=== PATIENT | male | born 1950 | race Caucasian/White ===

== ENCOUNTER 2021-03-09 06:36 | Inpatient (IN) | payer BC, MEDICARE ==
[2021-03-09] MEDS ORDERED: Sodium Chloride 0.9% 10 ML Syringe FLUSH PRN ×2 (07:26→14:47)
[2021-03-09] MEDS ORDERED: Sodium Chloride 0.9% 1,000 ML IV ONE (07:26)
[2021-03-09] MEDS ORDERED: Lactated Ringers 1,000 ML IV ONE ×2 (07:46→11:34)
--- NOTE | 2021-03-09 07:53 | EDM.PDOC ---
ED HPI GENERAL MEDICAL PROBLEM - General Chief Complaint: General Stated Complaint: WEAKNESS Time Seen by Provider: 03/09/21 07:25 Source of Information: Reports: Patient History Limitations: Reports: No Limitations - History of Present Illness INITIAL COMMENTS - FREE TEXT/NARRATIVE: This is a 70-year-old male without significant medical history who presents with concerns of weakness. History is provided by the patient and his . He is up in the area visiting and staying at his cabin. He woke up yesterday morning feeling fatigued. They drove up to the area yesterday, he works summer on the cab and went for a walk but felt fatigued throughout the day. He took a nap yesterday afternoon. In the evening he was in the shower when he became weak and passed out. He did have a head strike. Overnight he was noted to have a continued weakness when he would attempt to get up out of bed. Does not like his symptoms are primarily when standing. He was noted to be incontinent of urine once by his . He otherwise reports a mild cough over the last few days. He has no pain. He has had no urinary discomfort. He notes no tick bites. He is not anticoagulated. He has never been hospitalized. He does note a diarrheal illness yesterday. He is accompanied by his today who feels that he is "not as sharp". - Related Data Allergies Allergy/AdvReac Type Severity Reaction Status Date / Time No Known Allergies Allergy Verified 03/09/21 14:32 Home Meds: Home Meds Doxycycline [Vibramycin] 100 mg IV Q12H vial 03/09/21 [Rx] Enoxaparin [Lovenox] 40 mg SUBCUT Q24H syringe 03/09/21 [Rx] Meropenem [Merrem] 1 gm IV Q8H sdv 03/09/21 [Rx] Norepinephrine [Levophed] 8 mg IV TITRATE sdv 03/09/21 [Rx] Past Medical History - Past Health History Medical/Surgical History: Denies Medical/Surgical History - Infectious Disease History Infectious Disease History: Reports: Chicken Pox, Measles Social & Family History - Tobacco Use Tobacco Use Status *Q: Never Tobacco User - Caffeine Use Caffeine Use: Reports: Coffee - Recreational Drug Use Recreational Drug Use: No ED ROS GENERAL - Review of Systems Review Of Systems: See Below Constitutional: Reports: Malaise, Weakness HEENT: Reports: No Symptoms Respiratory: Reports: Cough Cardiovascular: Reports: No Symptoms Endocrine: Reports: No Symptoms GI/Abdominal: Reports: Diarrhea : Reports: Incontinence. Denies: Frequency, Hematuria Musculoskeletal: Reports: No Symptoms. Denies: Neck Pain Skin: Reports: No Symptoms Neurological: Reports: Confusion Psychiatric: Reports: No Symptoms Hematologic/Lymphatic: Reports: No Symptoms Immunologic: Reports: No Symptoms ED EXAM, GENERAL - Physical Exam Exam: See Below Exam Limited By: No Limitations General Appearance: Alert, No Apparent Distress Ears: Normal External Exam Nose: Normal Inspection Throat/Mouth: Normal Inspection Head: Other (superifical abrasion over the left forehead) Neck: Full Range of Motion. No: Tender Lateral, Tender Midline Respiratory/Chest: Lungs Clear. No: No Respiratory Distress Cardiovascular: Regular Rate, Rhythm GI/Abdominal: Soft, Non-Tender Back Exam: Normal Inspection Extremities: Normal Inspection Neurological: Alert, Oriented, CN II-XII Intact, Normal Cognition, Other (He is alert, oriented, conversant. Speech is fluid. Extremity strength symmetric and intact. Finger-nose testing intact.) Psychiatric: Normal Affect, Normal Mood Skin Exam: Warm, Dry #2 Interpretation EKG Date: 03/09/21 Rhythm: NSR [place]: Normal P-Wave: Present QRS: Normal ST-T: Normal QT: Normal (Nonspecific T wave inversions in lead III, no other ischemic change, no prior for comparison) Course - Vital Signs Last Recorded V/S: Last Vital Signs Temp 36.2 C 03/09/21 19:30 Pulse 62 03/09/21 20:45 Resp 21 H 03/09/21 20:45 BP 108/43 L 03/09/21 20:45 Pulse Ox 94 L 03/09/21 20:45 Orthostatic Blood Pressure [ 75/42 Standing] Orthostatic Blood Pressure [ 110/89 Sitting] Orthostatic Blood Pressure [ 105/43 Supine] - Orders/Labs/Meds Labs: Laboratory Tests 03/09/21 03/09/21 03/09/21 Range/Units 07:30 07:30 07:30 WBC (4.5-11.0) K/uL RBC (4.30-5.90) M/uL Hgb (12.0-15.0) g/dL Hct (40.0-54.0) % MCV (80-98) fL MCH (27-31) pg MCHC (32-36) % Plt Count (150-400) K/uL Sodium 136 L (140-148) mmol/L Potassium 3.6 (3.6-5.2) mmol/L Chloride 103 (100-108) mmol/L Carbon Dioxide 21 (21-32) mmol/L Anion Gap 15.6 H (5.0-14.0) mmol/L BUN 18 (7-18) mg/dL Creatinine 1.3 (0.8-1.3) mg/dL Est Cr Clr Drug Dosing 57.12 mL/min Estimated GFR (MDRD) 55 L (>60) Glucose 150 H (74-106) mg/dL Lactic Acid 2.3 H (0.4-2.0) mmol/L Calcium 7.8 L (8.5-10.1) mg/dL POC WB Ioniz Calcium (1.12-1.32) mmol/L Magnesium 1.6 L (1.8-2.4) mg/dL Total Bilirubin 0.8 (0.2-1.0) mg/dL AST 24 (15-37) U/L ALT 39 (12-78) U/L Alkaline Phosphatase 58 (46-116) U/L Troponin I < 0.017 (0.000-0.056) ng/mL C-Reactive Protein (0.0-0.3) mg/dL Total Protein 6.1 L (6.4-8.2) g/dL Albumin 3.1 L (3.4-5.0) g/dL Globulin 3.0 (2.3-3.5) g/dL Albumin/Globulin Ratio 1.0 L (1.2-2.2) Procalcitonin ng/mL Urine Color (YELLOW) Urine Appearance (CLEAR) Urine pH (5.0-8.0) Ur Specific [place] (1.008-1.030) Urine Protein (NEGATIVE) mg/dL Urine Glucose (UA) (NEGATIVE) mg/dL Urine Ketones (NEGATIVE) mg/dL Urine Occult Blood (NEGATIVE) Urine Nitrite (NEGATIVE) Urine Bilirubin (NEGATIVE) Urine Urobilinogen (0.2-1.0) EU/dL Ur Leukocyte Esterase (NEGATIVE) Urine RBC (0-5) Urine WBC (0-5) Ur Epithelial Cells Amorphous Sediment Urine Bacteria Urine Mucus Influenza Type A RNA (NEGATIVE) RSV RNA (INAAT) (NEGATIVE) Influenza Type B RNA (NEGATIVE) SARS-CoV-2 RNA (MARGARITA) (NEGATIVE) 03/09/21 03/09/21 03/09/21 Range/Units 07:30 07:44 08:37 WBC 5.5 (4.5-11.0) K/uL RBC 4.09 L (4.30-5.90) M/uL Hgb 13.0 (12.0-15.0) g/dL Hct 37.7 L (40.0-54.0) % MCV 92 (80-98) fL MCH 32 H (27-31) pg MCHC 35 (32-36) % Plt Count 96 L (150-400) K/uL Sodium (140-148) mmol/L Potassium (3.6-5.2) mmol/L Chloride (100-108) mmol/L Carbon Dioxide (21-32) mmol/L Anion Gap (5.0-14.0) mmol/L BUN (7-18) mg/dL Creatinine (0.8-1.3) mg/dL Est Cr Clr Drug Dosing mL/min Estimated GFR (MDRD) (>60) Glucose (74-106) mg/dL Lactic Acid (0.4-2.0) mmol/L Calcium (8.5-10.1) mg/dL POC WB Ioniz Calcium (1.12-1.32) mmol/L Magnesium (1.8-2.4) mg/dL Total Bilirubin (0.2-1.0) mg/dL AST (15-37) U/L ALT (12-78) U/L Alkaline Phosphatase (46-116) U/L Troponin I (0.000-0.056) ng/mL C-Reactive Protein (0.0-0.3) mg/dL Total Protein (6.4-8.2) g/dL Albumin (3.4-5.0) g/dL Globulin (2.3-3.5) g/dL Albumin/Globulin Ratio (1.2-2.2) Procalcitonin ng/mL Urine Color Yellow (YELLOW) Urine Appearance Clear (CLEAR) Urine pH 5.5 (5.0-8.0) Ur Specific [place] 1.025 (1.008-1.030) Urine Protein Negative (NEGATIVE) mg/dL Urine Glucose (UA) Negative (NEGATIVE) mg/dL Urine Ketones Negative (NEGATIVE) mg/dL Urine Occult Blood Negative (NEGATIVE) Urine Nitrite Negative (NEGATIVE) Urine Bilirubin Negative (NEGATIVE) Urine Urobilinogen 0.2 (0.2-1.0) EU/dL Ur Leukocyte Esterase Negative (NEGATIVE) Urine RBC 0-5 (0-5) Urine WBC 0-5 (0-5) Ur Epithelial Cells Rare Amorphous Sediment Not seen Urine Bacteria Not seen Urine Mucus Few Influenza Type A RNA Negative (NEGATIVE) RSV RNA (INAAT) Negative (NEGATIVE) Influenza Type B RNA Negative (NEGATIVE) SARS-CoV-2 RNA (MARGARITA) Negative (NEGATIVE) 03/09/21 03/09/21 03/09/21 Range/Units 09:00 09:13 11:36 WBC (4.5-11.0) K/uL RBC (4.30-5.90) M/uL Hgb (12.0-15.0) g/dL Hct (40.0-54.0) % MCV (80-98) fL MCH (27-31) pg MCHC (32-36) % Plt Count (150-400) K/uL Sodium (140-148) mmol/L Potassium (3.6-5.2) mmol/L Chloride (100-108) mmol/L Carbon Dioxide (21-32) mmol/L Anion Gap (5.0-14.0) mmol/L BUN (7-18) mg/dL Creatinine (0.8-1.3) mg/dL Est Cr Clr Drug Dosing mL/min Estimated GFR (MDRD) (>60) Glucose (74-106) mg/dL Lactic Acid (0.4-2.0) mmol/L Calcium (8.5-10.1) mg/dL POC WB Ioniz Calcium 1.09 L (1.12-1.32) mmol/L Magnesium (1.8-2.4) mg/dL Total Bilirubin (0.2-1.0) mg/dL AST (15-37) U/L ALT (12-78) U/L Alkaline Phosphatase (46-116) U/L Troponin I (0.000-0.056) ng/mL C-Reactive Protein 5.32 H (0.0-0.3) mg/dL Total Protein (6.4-8.2) g/dL Albumin (3.4-5.0) g/dL Globulin (2.3-3.5) g/dL Albumin/Globulin Ratio (1.2-2.2) Procalcitonin 0.23 ng/mL Urine Color (YELLOW) Urine Appearance (CLEAR) Urine pH (5.0-8.0) Ur Specific [place] (1.008-1.030) Urine Protein (NEGATIVE) mg/dL Urine Glucose (UA) (NEGATIVE) mg/dL Urine Ketones (NEGATIVE) mg/dL Urine Occult Blood (NEGATIVE) Urine Nitrite (NEGATIVE) Urine Bilirubin (NEGATIVE) Urine Urobilinogen (0.2-1.0) EU/dL Ur Leukocyte Esterase (NEGATIVE) Urine RBC (0-5) Urine WBC (0-5) Ur Epithelial Cells Amorphous Sediment Urine Bacteria Urine Mucus Influenza Type A RNA (NEGATIVE) RSV RNA (INAAT) (NEGATIVE) Influenza Type B RNA (NEGATIVE) SARS-CoV-2 RNA (MARGARITA) (NEGATIVE) 03/09/21 Range/Units 11:36 WBC (4.5-11.0) K/uL RBC (4.30-5.90) M/uL Hgb (12.0-15.0) g/dL Hct (40.0-54.0) % MCV (80-98) fL MCH (27-31) pg MCHC (32-36) % Plt Count (150-400) K/uL Sodium (140-148) mmol/L Potassium (3.6-5.2) mmol/L Chloride (100-108) mmol/L Carbon Dioxide (21-32) mmol/L Anion Gap (5.0-14.0) mmol/L BUN (7-18) mg/dL Creatinine (0.8-1.3) mg/dL Est Cr Clr Drug Dosing mL/min Estimated GFR (MDRD) (>60) Glucose (74-106) mg/dL Lactic Acid 1.6 (0.4-2.0) mmol/L Calcium (8.5-10.1) mg/dL POC WB Ioniz Calcium (1.12-1.32) mmol/L Magnesium (1.8-2.4) mg/dL Total Bilirubin (0.2-1.0) mg/dL AST (15-37) U/L ALT (12-78) U/L Alkaline Phosphatase (46-116) U/L Troponin I (0.000-0.056) ng/mL C-Reactive Protein (0.0-0.3) mg/dL Total Protein (6.4-8.2) g/dL Albumin (3.4-5.0) g/dL Globulin (2.3-3.5) g/dL Albumin/Globulin Ratio (1.2-2.2) Procalcitonin ng/mL Urine Color (YELLOW) Urine Appearance (CLEAR) Urine pH (5.0-8.0) Ur Specific [place] (1.008-1.030) Urine Protein (NEGATIVE) mg/dL Urine Glucose (UA) (NEGATIVE) mg/dL Urine Ketones (NEGATIVE) mg/dL Urine Occult Blood (NEGATIVE) Urine Nitrite (NEGATIVE) Urine Bilirubin (NEGATIVE) Urine Urobilinogen (0.2-1.0) EU/dL Ur Leukocyte Esterase (NEGATIVE) Urine RBC (0-5) Urine WBC (0-5) Ur Epithelial Cells Amorphous Sediment Urine Bacteria Urine Mucus Influenza Type A RNA (NEGATIVE) RSV RNA (INAAT) (NEGATIVE) Influenza Type B RNA (NEGATIVE) SARS-CoV-2 RNA (MARGARITA) (NEGATIVE) Meds: Medications Discontinued Medications Generic Name Dose Route Start Last Admin Trade Name Freq PRN Reason Stop Dose Admin Acetaminophen 650 mg 03/09/21 14:47 03/09/21 15:53 Acetaminophen 325 Mg Tab PO 650 mg Q4H PRN Administration Pain (Mild 1-3)/fever Calcium Carbonate/Glycine 1,000 mg 03/09/21 09:19 03/09/21 10:44 Calcium Carbonate 500 Mg Tab.Chew PO 03/09/21 09:20 1,000 mg ONETIME ONE Administration Enoxaparin Sodium 40 mg 03/09/21 16:00 03/09/21 15:54 Enoxaparin 40 Mg/0.4 Ml Syringe SUBCUT 40 mg Q24H TONI Administration Haloperidol Lactate 1 mg 03/09/21 17:41 03/09/21 17:57 Haloperidol Lactate 5 Mg/Ml Sdv IVPUSH 1 mg Q2H PRN Administration Agitation Sodium Chloride 1,000 mls @ 999 mls/hr 03/09/21 07:26 03/09/21 07:35 Normal Saline IV 03/09/21 08:26 999 mls/hr BOLUS ONE Administration Protocol Lactated Ringer's 1,000 mls @ 999 mls/hr 03/09/21 07:46 03/09/21 09:41 Ringers, Lactated IV 03/09/21 08:46 999 mls/hr BOLUS ONE Administration Cefepime HCl 2 gm/ Sodium 50 mls @ 100 mls/hr 03/09/21 11:13 03/09/21 12:18 Chloride IV 03/09/21 11:42 100 mls/hr ONETIME ONE Administration Doxycycline Hyclate 100 mg/ 100 mls @ 100 mls/hr 03/09/21 11:13 03/09/21 13:25 Sodium Chloride IV 03/09/21 12:12 100 mls/hr ONETIME ONE Administration Lactated Ringer's 1,000 mls @ 999 mls/hr 03/09/21 11:34 03/09/21 12:17 Ringers, Lactated IV 03/09/21 12:34 999 mls/hr BOLUS ONE Administration Lactated Ringer's 1,000 mls @ 125 mls/hr 03/09/21 14:47 03/09/21 17:05 Ringers, Lactated IV 125 mls/hr ASDIRECTED TONI Administration Doxycycline Hyclate 100 mg/ 100 mls @ 100 mls/hr 03/10/21 02:00 Sodium Chloride IV Q12H TONI Meropenem 1 gm/ Sodium 100 mls @ 200 mls/hr 03/09/21 16:00 03/09/21 15:54 Chloride IV 200 mls/hr Q8H TONI Administration Norepinephrine Bitartrate 8 mg 258 mls @ 3.87 mls/hr 03/09/21 17:00 03/09/21 18:03 / Dextrose/Water IV 4 mcg/min TITRATE TONI 7.74 mls/hr Infusion Protocol 2 MCG/MIN Magnesium Oxide 800 mg 03/09/21 08:55 03/09/21 10:44 Magnesium Oxide 400 Mg Tab PO 03/09/21 08:56 800 mg ONETIME ONE Administration Ondansetron HCl 4 mg 03/09/21 14:47 Ondansetron 4 Mg/2 Ml Sdv IV Q4H PRN Nausea/Vomiting Polyethylene Glycol 17 gm 03/09/21 14:47 Polyethylene Glycol 3350 Powder 17 Gm Packet PO DAILY PRN Constipation Sodium Chloride 10 ml 03/09/21 07:26 03/09/21 07:35 Sodium Chloride 0.9% 10 Ml Syringe FLUSH 10 ml ASDIRECTED PRN Administration Keep Vein Open Sodium Chloride 10 ml 03/09/21 14:47 Sodium Chloride 0.9% 10 Ml Syringe FLUSH ASDIRECTED PRN Keep Vein Open - Re-Assessments/Exams Free Text/Narrative Re-Assessment/Exam: This is a 70-year-old male who presents with concerns of generalized weakness. This was associated with some confusion and a fall in the shower yesterday. On examination he was found to be hypotensive with preserved heart rate. He had persistent concerning blood pressure readings of systolics in the 80s. Cardiopulmonary exam is otherwise unremarkable. His saturations were appropriate on room air. His symptoms of fatigue, weakness, without any other associated symptoms or findings on exam left us with a broad differential. Screening labs were obtained and show thrombocytopenia but are otherwise generally unremarkable. He was having some cough but there is no infiltrate on chest x-ray. No other focal findings on exam to suggest a source for sepsis. With his fall and head strike in the shower we did obtain a CT of the head which showed no acute abnormality. He was given several boluses of IV fluids to correct his blood pressure. After 3 L they did start to normalize somewhat in the emergency department. Fluid resuscitation was guided by [id number] ultrasound, it was difficult to visu elda his IVC however his ejection fraction appeared grossly preserved, there was no RV enlargement, no pericardial effusion. I suspect the etiology of his symptoms is probably tickborne illness, he is frequently in the [place], symptoms could be consistent with this with some suggestion of this by his thrombocytopenia. However, given his hypotension and undifferentiated presentation we cannot rule out that he is septic from an occult source. He was therefore given doxycycline and cefepime. He was admitted to the hospitalist for further work-up and management. 03/10/21 17:20 Departure - Departure Time of Disposition: 14:00 Disposition: Admitted As Inpatient 67 Clinical Impression: At high risk for tick borne illness Hypotension Qualifiers: Hypotension type: unspecified hypotension type Qualified Code(s): I95.9 - Hypotension, unspecified - Discharge Information Sepsis Event Note (ED) - Evaluation Sepsis Screening Result: No Definite Risk
--- NOTE | 2021-03-09 08:39 | CRLCT ---
INDICATION: Fall. Confusion. TECHNIQUE: Noncontrast CT images were acquired through the brain. COMPARISON: None. FINDINGS: Prominence of the ventricles and sulci compatible with mild diffuse cerebral volume loss. No mass effect or midline shift. The prajapati-white differentiation is maintained. No acute intracranial hemorrhage or pathologic extra-axial fluid collection. Scattered hypoattenuation in the supratentorial white matter, suggestive of mild chronic microvascular ischemic changes. Intracranial atherosclerotic calcifications. Dysconjugate gaze noted. The calvarium is intact. Mild ethmoid and left sphenoid sinus mucosal thickening. The mastoid air cells are clear. IMPRESSION: 1. No acute intracranial hemorrhage or mass effect. 2. Suggested mild chronic microvascular ischemic changes. 3. Mild diffuse cerebral volume loss. Please note that all CT scans at this facility use dose modulation, iterative reconstruction, and/or weight-based dosing when appropriate to reduce radiation dose to as low as reasonably achievable. Dictated by Babatunde Costa MD @ 03/09/2021 8:39:[address] Babatunde Costa @ Mar 09 2021 8:39AM
[2021-03-09 08:41] LABS: CORONAVIRUS COVID-19 NAA NEGATIVE (NEGATIVE)
[2021-03-09] MEDS ORDERED: Magnesium Oxide 400 MG Tab PO ONE (08:55)
[2021-03-09] MEDS ORDERED: Calcium Carbonate 500 MG Tab.Chew PO ONE (09:19)
[2021-03-09] MEDS ORDERED: Doxycycline 100 MG in Sodium Chloride 0.9% 100 ML IV ONE (11:13)
[2021-03-09] MEDS ORDERED: Cefepime 2 GM in Sodium Chloride 0.9% 50 ML IV ONE (11:13)
[2021-03-09] MEDS ORDERED: Ondansetron 4 MG/2 ML SDV IV PRN (14:47)
[2021-03-09] MEDS ORDERED: Polyethylene Glycol 3350 Powder 17 GM Packet PO PRN (14:47)
[2021-03-09] MEDS ORDERED: Lactated Ringers 1,000 ML IV SCH (14:47)
[2021-03-09] MEDS ORDERED: Acetaminophen 325 MG Tab PO PRN (14:47)
--- NOTE | 2021-03-09 14:47 | PCM.HP.2 ---
H&P History of Present Illness - General Date of Service: 03/09/21 Admit Problem/Dx: Admission Diagnosis/Problem Admission Diagnosis/Problem Sepsis Source of Information: Patient, Family, Provider, RN Notes Reviewed History Limitations: Reports: No Limitations - History of Present Illness Initial Comments - Free Text/Narative: Mr. Bauer is a 70-year-old gentleman who was admitted through the emergency department with profound weakness, hypotension, syncopal episodes, secondary to sepsis and underlying infection. He felt well until yesterday when he noted marked weakness and fatigue throughout the day. He took a shower in the evening and while showering he experienced a syncopal episode and had marked difficulty getting up off the floor of the shower. He also reports symptoms of chills and sweats. During the night he apparently fell out of bed at least once and this morning when attempting to get out of bed experienced another syncopal episode. He came into the emergency department via EMS and was noted to be hypotensive with systolic pressure in the 80s. He has received 3 L of IV fluids given in the emergency department per sepsis protocol. White blood cell count is low normal and platelet count is low as well. Temperature has been elevated while h jose has been in the emergency department. Blood cultures have been obtained. He is out in the [facility] frequently especially when he is at his cabin here in the [place] area. He has noted ticks when he was here 2 weeks ago as well as yesterday. He denies any areas of tick bites that he is aware of. No symptoms of localized infection. Serology for Lyme's disease and anaplasmosis have been obtained in the emergency department and he was started on IV doxycycline and cefepime. Blood pressure has stabilized after IV fluid infusion. Lactic acid level was mildly elevated but normalized following IV fluids. - Related Data Allergies/Adverse Reactions: Allergies Allergy/AdvReac Type Severity Reaction Status Date / Time No Known Allergies Allergy Verified 03/09/21 14:32 Home Medications: Home Meds NK [No Known Home Meds] 03/09/21 [History] Past Medical History - Past Health History Medical/Surgical History: Denies Medical/Surgical History - Infectious Disease History Infectious Disease History: Reports: Chicken Pox, Measles Social & Family History - Family History Family Medical History: Unobtainable - Tobacco Use Tobacco Use Status *Q: Never Tobacco User Second Hand Smoke Exposure: No - Caffeine Use Caffeine Use: Reports: Coffee, Soda - Recreational Drug Use Recreational Drug Use: No H&P Review of Systems - Review of Systems: Review Of Systems: See Below General: Reports: Fever, Chills, Malaise, Weakness, Fatigue, Diaphoresis HEENT: Reports: No Symptoms Pulmonary: Reports: No Symptoms Cardiovascular: Reports: No Symptoms Gastrointestinal: Reports: No Symptoms Genitourinary: Reports: No Symptoms Skin: Reports: No Symptoms Psychiatric: Reports: No Symptoms Neurological: Reports: No Symptoms Hematologic/Lymphatic: Reports: No Symptoms Immunologic: Reports: No Symptoms Exam - Exam Exam: See Below - Vital Signs Vital Signs: Last Vital Signs Temp 101.7 F H 03/09/21 14:29 Pulse 74 03/09/21 14:29 Resp 20 03/09/21 14:29 BP 109/55 L 03/09/21 14:29 Pulse Ox 95 03/09/21 14:29 Orthostatic Blood Pressure [ 75/42 Standing] Orthostatic Blood Pressure [ 110/89 Sitting] Orthostatic Blood Pressure [ 105/43 Supine] Weight: 277 lb 1.6 oz - Exam Quality Assessment: DVT Prophylaxis General: Alert, Cooperative, Moderate Distress HEENT: Conjunctiva Clear, Hearing Intact, Mucosa Moist & [place], Normal Nasal Septum, Posterior Pharynx Clear, Pupils Equal Neck: Supple, Trachea Midline, +2 Carotid Pulse wo Bruit Lungs: Clear to Auscultation, Normal Respiratory Effort Cardiovascular: Regular Rate, Regular Rhythm, Normal S1, Normal S2. No: Systolic Murmur, Diastolic Murmur GI/Abdominal Exam: Soft, Non-Tender, No Organomegaly, No Distention Back Exam: Normal Inspection, Full Range of Motion. No: Paraspinal Tenderness, Vertebral Tenderness Extremities: Non-Tender, No Pedal Edema Skin: Warm, Dry, Intact Neurological: Cranial Nerves Intact, Strength Equal Bilateral, Normal Speech, Normal Tone, Sensation Intact. No: Focal Deficit Neuro Extensive - Mental Status: Alert, Oriented x3, Other (Confusion and word searching) - Patient Data Lab Results Last 24 hrs: Laboratory Results - last 24 hr 03/09/21 03/09/21 03/09/21 Range/Units 07:30 07:30 07:30 WBC (4.5-11.0) K/uL RBC (4.30-5.90) M/uL Hgb (12.0-15.0) g/dL Hct (40.0-54.0) % MCV (80-98) fL MCH (27-31) pg MCHC (32-36) % Plt Count (150-400) K/uL Sodium 136 L (140-148) mmol/L Potassium 3.6 (3.6-5.2) mmol/L Chloride 103 (100-108) mmol/L Carbon Dioxide 21 (21-32) mmol/L Anion Gap 15.6 H (5.0-14.0) mmol/L BUN 18 (7-18) mg/dL Creatinine 1.3 (0.8-1.3) mg/dL Est Cr Clr Drug Dosing 57.12 mL/min Estimated GFR (MDRD) 55 L (>60) Glucose 150 H (74-106) mg/dL Lactic Acid 2.3 H (0.4-2.0) mmol/L Calcium 7.8 L (8.5-10.1) mg/dL POC WB Ioniz Calcium (1.12-1.32) mmol/L Magnesium 1.6 L (1.8-2.4) mg/dL Total Bilirubin 0.8 (0.2-1.0) mg/dL AST 24 (15-37) U/L ALT 39 (12-78) U/L Alkaline Phosphatase 58 (46-116) U/L Troponin I < 0.017 (0.000-0.056) ng/mL C-Reactive Protein (0.0-0.3) mg/dL Total Protein 6.1 L (6.4-8.2) g/dL Albumin 3.1 L (3.4-5.0) g/dL Globulin 3.0 (2.3-3.5) g/dL Albumin/Globulin Ratio 1.0 L (1.2-2.2) Urine Color (YELLOW) Urine Appearance (CLEAR) Urine pH (5.0-8.0) Ur Specific [place] (1.008-1.030) Urine Protein (NEGATIVE) mg/dL Urine Glucose (UA) (NEGATIVE) mg/dL Urine Ketones (NEGATIVE) mg/dL Urine Occult Blood (NEGATIVE) Urine Nitrite (NEGATIVE) Urine Bilirubin (NEGATIVE) Urine Urobilinogen (0.2-1.0) EU/dL Ur Leukocyte Esterase (NEGATIVE) Urine RBC (0-5) Urine WBC (0-5) Ur Epithelial Cells Amorphous Sediment Urine Bacteria Urine Mucus Influenza Type A RNA (NEGATIVE) RSV RNA (INAAT) (NEGATIVE) Influenza Type B RNA (NEGATIVE) SARS-CoV-2 RNA (MARGARITA) (NEGATIVE) 03/09/21 03/09/21 03/09/21 Range/Units 07:30 07:44 08:37 WBC 5.5 (4.5-11.0) K/uL RBC 4.09 L (4.30-5.90) M/uL Hgb 13.0 (12.0-15.0) g/dL Hct 37.7 L (40.0-54.0) % MCV 92 (80-98) fL MCH 32 H (27-31) pg MCHC 35 (32-36) % Plt Count 96 L (150-400) K/uL Sodium (140-148) mmol/L Potassium (3.6-5.2) mmol/L Chloride (100-108) mmol/L Carbon Dioxide (21-32) mmol/L Anion Gap (5.0-14.0) mmol/L BUN (7-18) mg/dL Creatinine (0.8-1.3) mg/dL Est Cr Clr Drug Dosing mL/min Estimated GFR (MDRD) (>60) Glucose (74-106) mg/dL Lactic Acid (0.4-2.0) mmol/L Calcium (8.5-10.1) mg/dL POC WB Ioniz Calcium (1.12-1.32) mmol/L Magnesium (1.8-2.4) mg/dL Total Bilirubin (0.2-1.0) mg/dL AST (15-37) U/L ALT (12-78) U/L Alkaline Phosphatase (46-116) U/L Troponin I (0.000-0.056) ng/mL C-Reactive Protein (0.0-0.3) mg/dL Total Protein (6.4-8.2) g/dL Albumin (3.4-5.0) g/dL Globulin (2.3-3.5) g/dL Albumin/Globulin Ratio (1.2-2.2) Urine Color Yellow (YELLOW) Urine Appearance Clear (CLEAR) Urine pH 5.5 (5.0-8.0) Ur Specific [place] 1.025 (1.008-1.030) Urine Protein Negative (NEGATIVE) mg/dL Urine Glucose (UA) Negative (NEGATIVE) mg/dL Urine Ketones Negative (NEGATIVE) mg/dL Urine Occult Blood Negative (NEGATIVE) Urine Nitrite Negative (NEGATIVE) Urine Bilirubin Negative (NEGATIVE) Urine Urobilinogen 0.2 (0.2-1.0) EU/dL Ur Leukocyte Esterase Negative (NEGATIVE) Urine RBC 0-5 (0-5) Urine WBC 0-5 (0-5) Ur Epithelial Cells Rare Amorphous Sediment Not seen Urine Bacteria Not seen Urine Mucus Few Influenza Type A RNA Negative (NEGATIVE) RSV RNA (INAAT) Negative (NEGATIVE) Influenza Type B RNA Negative (NEGATIVE) SARS-CoV-2 RNA (MARGARITA) Negative (NEGATIVE) 03/09/21 03/09/21 03/09/21 Range/Units 09:13 11:36 11:36 WBC (4.5-11.0) K/uL RBC (4.30-5.90) M/uL Hgb (12.0-15.0) g/dL Hct (40.0-54.0) % MCV (80-98) fL MCH (27-31) pg MCHC (32-36) % Plt Count (150-400) K/uL Sodium (140-148) mmol/L Potassium (3.6-5.2) mmol/L Chloride (100-108) mmol/L Carbon Dioxide (21-32) mmol/L Anion Gap (5.0-14.0) mmol/L BUN (7-18) mg/dL Creatinine (0.8-1.3) mg/dL Est Cr Clr Drug Dosing mL/min Estimated GFR (MDRD) (>60) Glucose (74-106) mg/dL Lactic Acid 1.6 (0.4-2.0) mmol/L Calcium (8.5-10.1) mg/dL POC WB Ioniz Calcium 1.09 L (1.12-1.32) mmol/L Magnesium (1.8-2.4) mg/dL Total Bilirubin (0.2-1.0) mg/dL AST (15-37) U/L ALT (12-78) U/L Alkaline Phosphatase (46-116) U/L Troponin I (0.000-0.056) ng/mL C-Reactive Protein 5.32 H (0.0-0.3) mg/dL Total Protein (6.4-8.2) g/dL Albumin (3.4-5.0) g/dL Globulin (2.3-3.5) g/dL Albumin/Globulin Ratio (1.2-2.2) Urine Color (YELLOW) Urine Appearance (CLEAR) Urine pH (5.0-8.0) Ur Specific [place] (1.008-1.030) Urine Protein (NEGATIVE) mg/dL Urine Glucose (UA) (NEGATIVE) mg/dL Urine Ketones (NEGATIVE) mg/dL Urine Occult Blood (NEGATIVE) Urine Nitrite (NEGATIVE) Urine Bilirubin (NEGATIVE) Urine Urobilinogen (0.2-1.0) EU/dL Ur Leukocyte Esterase (NEGATIVE) Urine RBC (0-5) Urine WBC (0-5) Ur Epithelial Cells Amorphous Sediment Urine Bacteria Urine Mucus Influenza Type A RNA (NEGATIVE) RSV RNA (INAAT) (NEGATIVE) Influenza Type B RNA (NEGATIVE) SARS-CoV-2 RNA (MARGARITA) (NEGATIVE) Result Diagrams: 03/09/21 07:30 03/09/21 07:30 Sepsis Event Note - Evaluation Sepsis Screening Result: No Definite Risk - Focused Exam Vital Signs: Vital Signs Temp Pulse Resp BP Pulse Ox 03/09/21 14:29 101.7 F H 74 20 109/55 L 95 03/09/21 12:21 74 17 97/36 L 90 L 03/09/21 11:10 74 15 93/48 L 96 03/09/21 11:02 74 15 74/44 L 87 L 03/09/21 10:56 101.4 F H 03/09/21 10:50 99 23 H 75/42 L 98 03/09/21 10:48 83 27 H 110/89 95 03/09/21 10:45 86 14 105/43 L 98 03/09/21 10:31 75 17 83/50 L 97 03/09/21 10:03 68 26 H 78/23 L 95 03/09/21 09:47 70 25 H 111/49 L 97 03/09/21 09:35 76 15 98/51 L 96 03/09/21 09:19 98.8 F 73 19 88/46 L 96 03/09/21 08:47 77 19 94/45 L 91 L 03/09/21 08:40 78 27 H 104/49 L 91 L 03/09/21 08:32 82 17 107/41 L 94 L 03/09/21 07:58 102.8 F H 03/09/21 07:57 78 15 95/48 L 92 L 03/09/21 07:56 95/48 L 03/09/21 07:26 77 80/44 L 03/09/21 07:05 101.3 F H 87 16 107/54 L 96 03/09/21 06:40 101.3 F H 87 16 107/54 L 96 *Q Meaningful Use (ADM) - VTE Risk Assess *Q Each Risk Factor Represents 1 Point: Obesity ( BMI > 25 kg/m2), Sepsis Total Score 1 Point Risk Factors: 2 Each Risk Factor Represents 2 Points: Age 60 - 74 Years Total Score 2 Point Risk Factors: 2 Each Risk Factor Represents 3 Points: None Total Score 3 Point Risk Factors: 0 Each Risk Factor Represents 5 Points: None Total Score 5 Point Risk Factors: 0 Venous Thromboembolism Risk Factor Score *Q: 4 Problem List Initiated/Reviewed/Updated: Yes Orders Last 24hrs: Active Orders 24 hr Category Date Time Status Patient Status Manage Transfer [TRANSFER] Routine ADT 03/09/21 14:39 Ordered Blood Pressure Mgt: Sepsis [RC] [id number] Care 03/09/21 07:26 Active EKG Documentation Completion [RC] ASDIRECTED Care 03/09/21 07:27 Active Chest 2V [CR] Stat Exams 03/09/21 07:26 Taken CULTURE BLOOD [BC] Urgent Lab 03/09/21 07:30 Received CULTURE BLOOD [BC] Urgent Lab 03/09/21 08:00 Received HUMAN GRANULOCYTIC ALEXIS-HGE Stat Lab 03/09/21 13:13 Ordered LYME, TOTAL AB TEST/REFLEX Stat Lab 03/09/21 07:30 Received PROCALCITONIN [CHEM] Stat Lab 03/09/21 09:00 Received Sodium Chloride 0.9% [Saline Flush] Med 03/09/21 07:26 Active 10 ml FLUSH ASDIRECTED PRN Blood Culture x2 Reflex Set [OM.PC] Urgent Oth 03/09/21 07:26 Ordered Saline Lock Insert [OM.PC] Stat Oth 03/09/21 07:26 Ordered Severe Sepsis Onset Time [OM.PC] Stat Oth 03/09/21 07:26 Ordered Resuscitation Status Routine Resus Stat 03/09/21 14:40 Ordered EKG 12 Lead [EK] Stat Ther 03/09/21 07:26 Ordered Medication Orders Sodium Chloride (Sodium Chloride 0.9% 10 Ml Syringe) 10 ml FLUSH ASDIRECTED PRN PRN Reason: Keep Vein Open Last Admin: 03/09/21 07:35 Dose: 10 ml Documented by: YESENIA Assessment/Plan Comment:: ASSESSMENT AND PLAN SEPSIS-secondary to underlying infection, 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 Normal white blood cell count, procalcitonin level is only mildly elevated. Low normal white blood cell count and thrombocytopenia would certainly fit with anaplasmosis. This point he is not had headache, significant myalgias, or transaminitis. He is experiencing some mild confusion and word searching -Serology for Lyme's disease and anaplasmosis pending -Blood cultures pending -Continue IV fluids -Epinephrine for further hypotension -Doxycycline IV -Empiric broad-spectrum antibiotic therapy with meropenem, pending culture results and response to therapy HYPOTENSION-likely secondary to sepsis -Management as above MAINTENANCE ISSUES -DVT prophylaxis; Lovenox 40 mg subcu daily -GI prophylaxis; not indicated -Redd catheter; not indicated -Nutrition; regular diet -Nicotine dependence; not required CODE STATUS-FULL CODE ADMISSION STATUS-patient will be admitted to inpatient status, expect at least a 2 night hospital stay for evaluation and management of problems as outlined above. At the time of this admission I do not reasonably expected evaluation and management of this problem will require more than a 96 hour hospital stay. DISPOSITION-anticipate discharge to home after the hospital stay. PRIMARY CARE PROVIDER-he is from the [facility] and receives primary care there - Mortality Measure Prognosis:: Good
[2021-03-09] MEDS ORDERED: Enoxaparin 40 MG/0.4 ML Syringe SUBCUT SCH (16:00)
[2021-03-09] MEDS ORDERED: Meropenem 1 GM in Sodium Chloride 0.9% 100 ML IV SCH (16:00)
[2021-03-09] MEDS ORDERED: Norepinephrine 8 MG in Dextrose 5% in Water 250 ML IV SCH ×2 (17:00)
[2021-03-09] MEDS ORDERED: Haloperidol Lactate 5 MG/ML SDV IVPUSH PRN (17:41)
--- NOTE | 2021-03-09 19:31 | PCM.DCSUM1 ---
Discharge Summary - Hospital Course Brief History: Mr. 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 - Discharge Data Discharge Date: 03/09/21 Discharge Disposition: DC/Tfer to Acute Hospital 02 Condition: Serious - Referral to Home Health Primary Care Physician: PCP None - Discharge Diagnosis/Problem(s) (1) Sepsis SNOMED Code(s): 58044528 ICD Code: A41.9 - SEPSIS, UNSPECIFIED ORGANISM Status: Acute Current Visit: Yes (2) Hypotension SNOMED Code(s): 90813449 ICD Code: I95.9 - HYPOTENSION, UNSPECIFIED Status: Acute Current Visit: Yes (3) Acute hyperactive delirium due to another medical condition SNOMED Code(s): 2509040, 548612211, 633171948 ICD Code: F05 - DELIRIUM DUE TO KNOWN PHYSIOLOGICAL CONDITION Status: Acute Current Visit: Yes (4) Anaplasmosis SNOMED Code(s): 72429324 ICD Code: A77.49 - OTHER EHRLICHIOSIS Status: Acute Current Visit: Yes - Patient Summary/Data Hospital Course: Mr. Bauer is a 70-year-old gentleman who was admitted through the emergency department with profound weakness, hypotension, syncopal episodes, secondary to sepsis and underlying infection. He felt well until yesterday when he noted marked weakness and fatigue throughout the day. He took a shower in the evening and while showering he experienced a syncopal episode and had marked difficulty getting up off the floor of the shower. He also reports symptoms of chills and sweats. During the night he apparently fell out of bed at least once and this morning when attempting to get out of bed experienced another syncopal episode. He came into the emergency department via EMS and was noted to be hypotensive with systolic pressure in the 80s. He has received 3 L of IV fluids given in the emergency department per sepsis protocol. White blood cell count is low normal and platelet count is low as well. Temperature has been elevated while he has been in the emergency department. Blood cultures have been obtained. [place] especially when he is at his cabin here in the [place] area. He has noted ticks when he was here 2 weeks ago as well as yesterday. He denies any areas of tick bites that he is aware of. No symptoms of localized infection. Serology for Lyme's disease and anaplasmosis have been obtained in the emergency department and he was started on IV doxycycline and cefepime. Blood pressure has stabilized after IV fluid infusion. Lactic acid level was mildly elevated but normalized following IV fluids. On admission he was continued on IV fluids as well as IV doxycycline. Meropenem was started for ongoing broad-spectrum IV antibiotic support. After transfer to the intensive care unit he developed recurrent hypotension. He received another 500 cc fluid bolus and was started on IV norepinephrine, at the time of transfer he is on 4 mcg. Blood pressure did improve with use of the norepinephrine. Respiratory status remained stable with no significant hypoxia or respiratory compromise. While in the intensive care unit he had ongoing difficulty with confusion and developed mild agitation. Because of ongoing evidence of sepsis he will be transferred to a tertiary care center by helicopter for further evaluation and management. He is from [place] and will be [facility], he has been accepted in transfer by Dr. Brasher. - Patient Instructions Diet: Usual Diet as Tolerated Activity: As Tolerated Other/Special Instructions: Patient will be transferred by air to the [facility] in [facility] for further subspecialty care and evaluation. - Discharge Plan *PRESCRIPTION DRUG MONITORING PROGRAM REVIEWED*: Not Applicable *COPY OF PRESCRIPTION DRUG MONITORING REPORT IN PATIENT KAITLIN: Not Applicable Home Medications: Home Meds Doxycycline [Vibramycin] 100 mg IV Q12H vial 03/09/21 [Rx] Enoxaparin [Lovenox] 40 mg SUBCUT Q24H syringe 03/09/21 [Rx] Meropenem [Merrem] 1 gm IV Q8H sdv 03/09/21 [Rx] Norepinephrine [Levophed] 8 mg IV TITRATE sdv 03/09/21 [Rx] - Discharge Summary/Plan Comment DC Time >30 min.: Yes (1 hour of time was spent arranging transfer and completing discharge) - Patient Data Vitals - Most Recent: Last Vital Signs Temp 101.1 F H 03/09/21 15:45 Pulse 74 03/09/21 15:45 Resp 17 03/09/21 15:45 BP 98/57 L 03/09/21 15:45 Pulse Ox 96 03/09/21 15:45 Orthostatic Blood Pressure [ 75/42 Standing] Orthostatic Blood Pressure [ 110/89 Sitting] Orthostatic Blood Pressure [ 105/43 Supine] Weight - Most Recent: 277 lb 1.6 oz I&O - Last 24 hours: Intake & Output 03/09/21 03/09/21 03/09/21 06:59 14:59 22:59 Intake Total 1999 Balance 1999 Lab Results - Last 24 hrs: Laboratory Results - last 24 hr 03/09/21 03/09/21 03/09/21 Range/Units 07:30 07:30 07:30 WBC (4.5-11.0) K/uL RBC (4.30-5.90) M/uL Hgb (12.0-15.0) g/dL Hct (40.0-54.0) % MCV (80-98) fL MCH (27-31) pg MCHC (32-36) % Plt Count (150-400) K/uL Sodium 136 L (140-148) mmol/L Potassium 3.6 (3.6-5.2) mmol/L Chloride 103 (100-108) mmol/L Carbon Dioxide 21 (21-32) mmol/L Anion Gap 15.6 H (5.0-14.0) mmol/L BUN 18 (7-18) mg/dL Creatinine 1.3 (0.8-1.3) mg/dL Est Cr Clr Drug Dosing 57.12 mL/min Estimated GFR (MDRD) 55 L (>60) Glucose 150 H (74-106) mg/dL Lactic Acid 2.3 H (0.4-2.0) mmol/L Calcium 7.8 L (8.5-10.1) mg/dL POC WB Ioniz Calcium (1.12-1.32) mmol/L Magnesium 1.6 L (1.8-2.4) mg/dL Total Bilirubin 0.8 (0.2-1.0) mg/dL AST 24 (15-37) U/L ALT 39 (12-78) U/L Alkaline Phosphatase 58 (46-116) U/L Troponin I < 0.017 (0.000-0.056) ng/mL C-Reactive Protein (0.0-0.3) mg/dL Total Protein 6.1 L (6.4-8.2) g/dL Albumin 3.1 L (3.4-5.0) g/dL Globulin 3.0 (2.3-3.5) g/dL Albumin/Globulin Ratio 1.0 L (1.2-2.2) Procalcitonin ng/mL Urine Color (YELLOW) Urine Appearance (CLEAR) Urine pH (5.0-8.0) Ur Specific [place] (1.008-1.030) Urine Protein (NEGATIVE) mg/dL Urine Glucose (UA) (NEGATIVE) mg/dL Urine Ketones (NEGATIVE) mg/dL Urine Occult Blood (NEGATIVE) Urine Nitrite (NEGATIVE) Urine Bilirubin (NEGATIVE) Urine Urobilinogen (0.2-1.0) EU/dL Ur Leukocyte Esterase (NEGATIVE) Urine RBC (0-5) Urine WBC (0-5) Ur Epithelial Cells Amorphous Sediment Urine Bacteria Urine Mucus Influenza Type A RNA (NEGATIVE) RSV RNA (INAAT) (NEGATIVE) Influenza Type B RNA (NEGATIVE) SARS-CoV-2 RNA (MARGARITA) (NEGATIVE) 03/09/21 03/09/21 03/09/21 Range/Units 07:30 07:44 08:37 WBC 5.5 (4.5-11.0) K/uL RBC 4.09 L (4.30-5.90) M/uL Hgb 13.0 (12.0-15.0) g/dL Hct 37.7 L (40.0-54.0) % MCV 92 (80-98) fL MCH 32 H (27-31) pg MCHC 35 (32-36) % Plt Count 96 L (150-400) K/uL Sodium (140-148) mmol/L Potassium (3.6-5.2) mmol/L Chloride (100-108) mmol/L Carbon Dioxide (21-32) mmol/L Anion Gap (5.0-14.0) mmol/L BUN (7-18) mg/dL Creatinine (0.8-1.3) mg/dL Est Cr Clr Drug Dosing mL/min Estimated GFR (MDRD) (>60) Glucose (74-106) mg/dL Lactic Acid (0.4-2.0) mmol/L Calcium (8.5-10.1) mg/dL POC WB Ioniz Calcium (1.12-1.32) mmol/L Magnesium (1.8-2.4) mg/dL Total Bilirubin (0.2-1.0) mg/dL AST (15-37) U/L ALT (12-78) U/L Alkaline Phosphatase (46-116) U/L Troponin I (0.000-0.056) ng/mL C-Reactive Protein (0.0-0.3) mg/dL Total Protein (6.4-8.2) g/dL Albumin (3.4-5.0) g/dL Globulin (2.3-3.5) g/dL Albumin/Globulin Ratio (1.2-2.2) Procalcitonin ng/mL Urine Color Yellow (YELLOW) Urine Appearance Clear (CLEAR) Urine pH 5.5 (5.0-8.0) Ur Specific [place] 1.025 (1.008-1.030) Urine Protein Negative (NEGATIVE) mg/dL Urine Glucose (UA) Negative (NEGATIVE) mg/dL Urine Ketones Negative (NEGATIVE) mg/dL Urine Occult Blood Negative (NEGATIVE) Urine Nitrite Negative (NEGATIVE) Urine Bilirubin Negative (NEGATIVE) Urine Urobilinogen 0.2 (0.2-1.0) EU/dL Ur Leukocyte Esterase Negative (NEGATIVE) Urine RBC 0-5 (0-5) Urine WBC 0-5 (0-5) Ur Epithelial Cells Rare Amorphous Sediment Not seen Urine Bacteria Not seen Urine Mucus Few Influenza Type A RNA Negative (NEGATIVE) RSV RNA (INAAT) Negative (NEGATIVE) Influenza Type B RNA Negative (NEGATIVE) SARS-CoV-2 RNA (MARGARITA) Negative (NEGATIVE) 03/09/21 03/09/21 03/09/21 Range/Units 09:00 09:13 11:36 WBC (4.5-11.0) K/uL RBC (4.30-5.90) M/uL Hgb (12.0-15.0) g/dL Hct (40.0-54.0) % MCV (80-98) fL MCH (27-31) pg MCHC (32-36) % Plt Count (150-400) K/uL Sodium (140-148) mmol/L Potassium (3.6-5.2) mmol/L Chloride (100-108) mmol/L Carbon Dioxide (21-32) mmol/L Anion Gap (5.0-14.0) mmol/L BUN (7-18) mg/dL Creatinine (0.8-1.3) mg/dL Est Cr Clr Drug Dosing mL/min Estimated GFR (MDRD) (>60) Glucose (74-106) mg/dL Lactic Acid (0.4-2.0) mmol/L Calcium (8.5-10.1) mg/dL POC WB Ioniz Calcium 1.09 L (1.12-1.32) mmol/L Magnesium (1.8-2.4) mg/dL Total Bilirubin (0.2-1.0) mg/dL AST (15-37) U/L ALT (12-78) U/L Alkaline Phosphatase (46-116) U/L Troponin I (0.000-0.056) ng/mL C-Reactive Protein 5.32 H (0.0-0.3) mg/dL Total Protein (6.4-8.2) g/dL Albumin (3.4-5.0) g/dL Globulin (2.3-3.5) g/dL Albumin/Globulin Ratio (1.2-2.2) Procalcitonin 0.23 ng/mL Urine Color (YELLOW) Urine Appearance (CLEAR) Urine pH (5.0-8.0) Ur Specific [place] (1.008-1.030) Urine Protein (NEGATIVE) mg/dL Urine Glucose (UA) (NEGATIVE) mg/dL Urine Ketones (NEGATIVE) mg/dL Urine Occult Blood (NEGATIVE) Urine Nitrite (NEGATIVE) Urine Bilirubin (NEGATIVE) Urine Urobilinogen (0.2-1.0) EU/dL Ur Leukocyte Esterase (NEGATIVE) Urine RBC (0-5) Urine WBC (0-5) Ur Epithelial Cells Amorphous Sediment Urine Bacteria Urine Mucus Influenza Type A RNA (NEGATIVE) RSV RNA (INAAT) (NEGATIVE) Influenza Type B RNA (NEGATIVE) SARS-CoV-2 RNA (MARGARITA) (NEGATIVE) 03/09/21 Range/Units 11:36 WBC (4.5-11.0) K/uL RBC (4.30-5.90) M/uL Hgb (12.0-15.0) g/dL Hct (40.0-54.0) % MCV (80-98) fL MCH (27-31) pg MCHC (32-36) % Plt Count (150-400) K/uL Sodium (140-148) mmol/L Potassium (3.6-5.2) mmol/L Chloride (100-108) mmol/L Carbon Dioxide (21-32) mmol/L Anion Gap (5.0-14.0) mmol/L BUN (7-18) mg/dL Creatinine (0.8-1.3) mg/dL Est Cr Clr Drug Dosing mL/min Estimated GFR (MDRD) (>60) Glucose (74-106) mg/dL Lactic Acid 1.6 (0.4-2.0) mmol/L Calcium (8.5-10.1) mg/dL POC WB Ioniz Calcium (1.12-1.32) mmol/L Magnesium (1.8-2.4) mg/dL Total Bilirubin (0.2-1.0) mg/dL AST (15-37) U/L ALT (12-78) U/L Alkaline Phosphatase (46-116) U/L Troponin I (0.000-0.056) ng/mL C-Reactive Protein (0.0-0.3) mg/dL Total Protein (6.4-8.2) g/dL Albumin (3.4-5.0) g/dL Globulin (2.3-3.5) g/dL Albumin/Globulin Ratio (1.2-2.2) Procalcitonin ng/mL Urine Color (YELLOW) Urine Appearance (CLEAR) Urine pH (5.0-8.0) Ur Specific [place] (1.008-1.030) Urine Protein (NEGATIVE) mg/dL Urine Glucose (UA) (NEGATIVE) mg/dL Urine Ketones (NEGATIVE) mg/dL Urine Occult Blood (NEGATIVE) Urine Nitrite (NEGATIVE) Urine Bilirubin (NEGATIVE) Urine Urobilinogen (0.2-1.0) EU/dL Ur Leukocyte Esterase (NEGATIVE) Urine RBC (0-5) Urine WBC (0-5) Ur Epithelial Cells Amorphous Sediment Urine Bacteria Urine Mucus Influenza Type A RNA (NEGATIVE) RSV RNA (INAAT) (NEGATIVE) Influenza Type B RNA (NEGATIVE) SARS-CoV-2 RNA (MARGARITA) (NEGATIVE) Med Orders - Current: Current Medications Acetaminophen (Acetaminophen 325 Mg Tab) 650 mg PO Q4H PRN PRN Reason: Pain (Mild 1-3)/fever Last Admin: 03/09/21 15:53 Dose: 650 mg Documented by: Enoxaparin Sodium (Enoxaparin 40 Mg/0.4 Ml Syringe) 40 mg SUBCUT Q24H TONI Last Admin: 03/09/21 15:54 Dose: 40 mg Documented by: Haloperidol Lactate (Haloperidol Lactate 5 Mg/Ml Sdv) 1 mg IVPUSH Q2H PRN PRN Reason: Agitation Last Admin: 03/09/21 17:57 Dose: 1 mg Documented by: Lactated Ringer's (Ringers, Lactated) 1,000 mls @ 125 mls/hr IV ASDIRECTED TONI Last Admin: 03/09/21 17:05 Dose: 125 mls/hr Documented by: Doxycycline Hyclate 100 mg/ (Sodium Chloride) 100 mls @ 100 mls/hr IV Q12H TONI Meropenem 1 gm/ Sodium (Chloride) 100 mls @ 200 mls/hr IV Q8H [facility] Last Admin: 03/09/21 15:54 Dose: 200 mls/hr Documented by: Norepinephrine Bitartrate 8 mg (/ Dextrose/Water) 258 mls @ 3.87 mls/hr IV TITRATE [facility]; Protocol Last Infusion: 03/09/21 18:03 Dose: 4 mcg/min, 7.74 mls/hr Documented by: Ondansetron HCl (Ondansetron 4 Mg/2 Ml Sdv) 4 mg IV Q4H PRN PRN Reason: Nausea/Vomiting Polyethylene Glycol (Polyethylene Glycol 3350 Powder 17 Gm Packet) 17 gm PO DAILY PRN PRN Reason: Constipation Sodium Chloride (Sodium Chloride 0.9% 10 Ml Syringe) 10 ml FLUSH ASDIRECTED PRN PRN Reason: Keep Vein Open Discontinued Medications Calcium Carbonate/Glycine (Calcium Carbonate 500 Mg Tab.Chew) 1,000 mg PO ONETIME ONE Stop: 03/09/21 09:20 Last Admin: 03/09/21 10:44 Dose: 1,000 mg Documented by: Sodium Chloride (Normal Saline) 1,000 mls @ 999 mls/hr IV BOLUS ONE; Protocol Stop: 03/09/21 08:26 Last Admin: 03/09/21 07:35 Dose: 999 mls/hr Documented by: Lactated Ringer's (Ringers, Lactated) 1,000 mls @ 999 mls/hr IV BOLUS ONE Stop: 03/09/21 08:46 Last Admin: 03/09/21 09:41 Dose: 999 mls/hr Documented by: Cefepime HCl 2 gm/ Sodium (Chloride) 50 mls @ 100 mls/hr IV ONETIME ONE Stop: 03/09/21 11:42 Last Admin: 03/09/21 12:18 Dose: 100 mls/hr Documented by: Doxycycline Hyclate 100 mg/ (Sodium Chloride) 100 mls @ 100 mls/hr IV ONETIME ONE Stop: 03/09/21 12:12 Last Admin: 03/09/21 13:25 Dose: 100 mls/hr Documented by: Lactated Ringer's (Ringers, Lactated) 1,000 mls @ 999 mls/hr IV BOLUS ONE Stop: 03/09/21 12:34 Last Admin: 03/09/21 12:17 Dose: 999 mls/hr Documented by: Magnesium Oxide (Magnesium Oxide 400 Mg Tab) 800 mg PO ONETIME ONE Stop: 03/09/21 08:56 Last Admin: 03/09/21 10:44 Dose: 800 mg Documented by: Sodium Chloride (Sodium Chloride 0.9% 10 Ml Syringe) 10 ml FLUSH ASDIRECTED PRN PRN Reason: Keep Vein Open Last Admin: 03/09/21 07:35 Dose: 10 ml Documented by: - Exam Quality Assessment: Reports: DVT Prophylaxis General: Reports: Alert, Moderate Distress, Other (Confused). Denies: Oriented Lungs: Reports: Clear to Auscultation, Normal Respiratory Effort Cardiovascular: Reports: Regular Rate, Regular Rhythm, No Murmurs GI/Abdominal Exam: Soft, Non-Tender, No Organomegaly, No Distention Extremities: Non-Tender, No Pedal Edema
[2021-03-10] MEDS ORDERED: Doxycycline 100 MG in Sodium Chloride 0.9% 100 ML IV SCH (02:00)
--- NOTE | 2021-03-11 09:12 | CR ---
CHEST: Sitting AP and lateral CLINICAL HISTORY:Sepsis COMPARISON:None FINDINGS: The heart size, pulmonary vascularity and hilar structures are normal. No infiltrate effusion or pneumothorax is seen. IMPRESSION: No acute cardiopulmonary process.
[2021-03-13 12:13] LABS: LYME IGG/IGM AB <0.91 ISR (0.00-0.90)
[2021-03-13 13:13] LABS: HGE IGG TITER Negative (Neg:<1:64); HGE IGM TITER Negative (Neg:<1:20)
== END 2021-03-09 21:14 | DRG 872 ==
LOC: JP.ED 06:36 → JP.MS 14:07 → JP.ICU 14:39 → OBSVTOIN 14:47
PROVIDERS: ADMIT Hospitalist; ATTEND Hospitalist
PROC: 3E033XZ Introduction of Vasopressor into Peripheral Vein, Percutaneous Approach (ICD-10-PCS; principal; 2021-03-09)
DX: A41.9 Sepsis, unspecified organism (principal); A77.49 Other ehrlichiosis; F05 Delirium due to known physiological condition; Z20.822 Contact with and (suspected) exposure to COVID-19; I95.9 Hypotension, unspecified; R53.1 Weakness; D69.6 Thrombocytopenia, unspecified; R41.0 Disorientation, unspecified; W19.XXXA Unspecified fall, initial encounter; Z79.899 Other long term (current) drug therapy
CPT/HCPCS: 0241U; 36415; 70450; 71046; 80053; 81001; 82330; 83605; 83735; 84145; 84484; 85027; 86140; 86666; 87040; 93005; 86618; 96365; 96367; 99223; 99285-25; A9270-GY; J0692; J1630; J1650; J2185; J3490; J7030; J7060; J7120